=== PATIENT | male | born 1950 | race Caucasian/White ===

== ENCOUNTER 2017-03-17 10:40 | Outpatient (CLI) | payer MEDICARE, BC ==
--- NOTE | 2017-03-17 17:24 | CT Report ---
CT CHEST WITHOUT CONTRAST: 03/17/2017 CLINICAL INDICATION: Lung cancer screening, 66-year-old with 30-pack year history of smoking, quit w ithin last [address] images of the chest were obtained without intravenous contrast, using low-dose screening juliane hnique. In accordance with CT protocol optimization, one or more of the following dose reduction techniques w ere utilized for this exam: automated exposure control, adjustment of mA and/or KV based on patient size, or use of iterative reconstructive technique. No previous exam is available for comparison. The heart and great vessels demonstrate mild atherosclerotic calcification. No hilar or mediastinal lymphadenopathy is appreciated. There is a 4 mm calcified granuloma in the posterior right upper lob e. No noncalcified pulmonary nodule or mass lesion is appreciated. No effusion or pneumothorax is p resent. Osseous structures demonstrate degenerative changes. Limited evaluation of upper abdominal structures demonstrates normal adrenal glands. IMPRESSION: BENIGN CALCIFIED GRANULOMA IN THE RIGHT UPPER LOBE. NO NONCALCIFIED PULMONARY NODULE. RECOMMENDATION: CONTINUE ANNUAL SCREENING WITH LOW-DOSE CHEST CT IN 12 MONTHS. LUNG RADS CATEGORY 1, NEGATIVE. JOB #: [id number] EXT JOB #:[id number]
== END 2017-03-17 10:41 | disposition home or self-care (01) ==
LOC: DI 10:40
PROVIDERS: ATTEND Student in an Organized Health Care Education/Training Program
DX: Z12.2 Encounter for screening for malignant neoplasm of respiratory organs (principal); J84.10 Pulmonary fibrosis, unspecified; Z87.891 Personal history of nicotine dependence

== ENCOUNTER 2019-03-27 11:37 | Outpatient (CLI) | payer MEDICARE, OTHER ==
--- NOTE | 2019-03-27 13:48 | CT Report ---
Reason: NICOTINE ABUSE Procedure Date: 03/27/2019 Accession Number: [id number] / [id number] Procedure: CT - Low Dose Lung Cancer Screen CPT Code: FULL RESULT: EXAM CT LUNG SCREEN EXAM DATE: 03/27/2019 12:25 PM. HISTORY: 68-year-old patient with [id number] smoking history. Currently smoking: No. Quit smoking within the last 15 years. COMPARISON: CHEST SCREEN LOW DOSE W/O 03/17/2017 10:57 AM. TECHNIQUE: CT examination of the entire thorax without contrast was performed using low-dose technique. Thin section coronal, axial, sagittal and MIP axial images were obtained. In accordance with CT protocol optimization, one or more of the following dose reduction techniques were utilized for this exam: automated exposure control, adjustment of mA and/or KV based on patient size, or use of iterative reconstructive technique. FINDINGS: Nodules: Right upper lobe: Stable 4 mm calcified granuloma. No noncalcified pulmonary nodule. Right middle lobe: None. Right lower lobe: None. Left upper lobe: None. Left lower lobe: None. Emphysema: None. Pleura: Unremarkable. Aorta: Unremarkable. Mediastinum: Unremarkable. Coronary calcifications: Mild. Other pulmonary findings: None. Other extrapulmonary findings: None. IMPRESSION: Lung-RADS ASSESSMENT CATEGORY: 1 - negative. Probability of malignancy: Less than 1% RECOMMENDATION: Continue annual screening with LD CT in 12 months [facility]
== END 2019-03-27 11:38 | disposition home or self-care (01) ==
LOC: DI 11:37
PROVIDERS: ATTEND Student in an Organized Health Care Education/Training Program
DX: Z12.2 Encounter for screening for malignant neoplasm of respiratory organs (principal); Z87.891 Personal history of nicotine dependence